=== PATIENT | female | born 1995 | race Caucasian/White ===

== ENCOUNTER → 2016-09-15 | Outpatient (CLI) | payer BC | LOC: LABWHC1 15:41 | PROVIDERS: ATTEND Obstetrics & Gynecology | DX: Z34.00 Encounter for supervision of normal first pregnancy, unspecified trimester (principal); Z3A.00 Weeks of gestation of pregnancy not specified | CPT/HCPCS: 36415; 84702 ==

== ENCOUNTER → 2016-09-22 | Outpatient (CLI) | payer BC | END | disposition home or self-care (01) | LOC: LABWHC1 14:30 | PROVIDERS: ATTEND Obstetrics & Gynecology | DX: O03.9 Complete or unspecified spontaneous abortion without complication (principal) | CPT/HCPCS: 36415; 84702 ==

== ENCOUNTER 2016-09-26 22:23 | Emergency (ER) | payer BC, OTHER ==
[2016-09-26 22:28] VITALS: BP 128/55; PULSE 105; RESP 18; TEMP 99
[2016-09-26] MEDS ORDERED: MORPHINE SULFATE 10 MG/ML SYRINGE IM STA (22:42)
[2016-09-26] MEDS ORDERED: ORPHENADRINE 30 MG/ML 2 ML VIAL IM STA (22:43)
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
--- NOTE | 2016-09-27 01:56 | XR ---
EXAM: XR Chest, 2 Views CLINICAL HISTORY: Reason: Pain TECHNIQUE: Frontal and lateral views of the chest. COMPARISON: No relevant prior studies available. FINDINGS: Lungs: Unremarkable. No consolidation. Pleural space: Unremarkable. No pneumothorax. Heart: Unremarkable. No cardiomegaly. Mediastinum: Unremarkable. Bones/joints: Unremarkable. IMPRESSION: Normal chest x-rays.
--- NOTE | 2016-09-27 01:58 | XR ---
EXAM: XR Cervical Spine, 2 or 3 Views CLINICAL HISTORY: Reason: Pain TECHNIQUE: Frontal and lateral views of the cervical spine. COMPARISON: No relevant prior studies available. FINDINGS: Vertebrae: Unremarkable. No definite fracture. Normal alignment. Disc spaces: No acute findings. No significant narrowing. Soft tissues: Unremarkable. IMPRESSION: Normal cervical spine x-rays.
--- NOTE | 2016-09-27 01:59 | XR ---
EXAM: XR Left Clavicle Complete, 2 or More Views CLINICAL HISTORY: Pain TECHNIQUE: Frontal and lordotic views of the left clavicle. COMPARISON: No relevant prior studies available. FINDINGS: Bones/joints: Unremarkable. No acute fracture. No dislocation. Soft tissues: Unremarkable. IMPRESSION: Normal left clavicle x-rays.
== END 2016-09-26 23:38 | disposition home or self-care (01) ==
LOC: EC 22:23
DX: S16.1XXA Strain of muscle, fascia and tendon at neck level, initial encounter (principal); S20.20XA Contusion of thorax, unspecified, initial encounter; S40.012A Contusion of left shoulder, initial encounter; F17.200 Nicotine dependence, unspecified, uncomplicated; Z88.0 Allergy status to penicillin; Z88.8 Allergy status to other drugs, medicaments and biological substances; Z79.899 Other long term (current) drug therapy; V47.5XXA Car driver injured in collision with fixed or stationary object in traffic accident, initial encounter; Y92.410 Unspecified street and highway as the place of occurrence of the external cause
CPT/HCPCS: 99284; 71020; 72040; 73000; J2360; J2270

== ENCOUNTER 2018-02-09 06:00 | Inpatient (IN) | payer BC ==
[2018-02-09] MEDS ORDERED: BUTORPHANOL 1 MG/ML 1 ML VIAL IV PRN (16:44)
[2018-02-09] MEDS ORDERED: DINOPROSTONE 10 MG INSERT.ER VAGINAL ONE (16:44)
[2018-02-09 16:58] VITALS: BP 135/63; PULSE 100; RESP 16; TEMP 97.2; BMI 33.3
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
[2018-02-09] MEDS ORDERED: ACETAMINOPHEN TAB 325 MG TAB PO PRN (20:35)
[2018-02-10] MEDS ORDERED: METHYLERGONOVINE 0.2 MG/ML 1 ML AMP IM PRN (04:53)
[2018-02-10] MEDS ORDERED: OXYTOCIN 10 UNIT/ML 1 ML VIAL IM PRN (04:53)
[2018-02-10] MEDS ORDERED: CARBOPROST TROMETHAMINE 250 MCG/ML 1 ML AMP IM PRN (04:53)
[2018-02-10] MEDS ORDERED: LACTATED RINGERS 1,000 ML IV SCH (04:53)
[2018-02-10] MEDS ORDERED: TERBUTALINE 1 MG/ML VIAL SQ PRN (04:53)
[2018-02-10] MEDS ORDERED: OXYTOCIN 20 UNITS/1000 ML NS 1,000 ML IV SCH (04:53)
[2018-02-10] MEDS ORDERED: LIDOCAINE 0.5% (PF) 5 MG/ML (50 ML SDV) SQ PRN (04:53)
--- NOTE | 2018-02-10 06:09 | P.PN ---
Progress Note - Text Progress Note Date: 02/10/18 Patient's heart tones remained reactive overnight. Patient was having contractions but none that she really felt. Cervix this morning is approximately fingertip but still thick and firm. She and I previously discussed if she does not have results with her Cervidil that she could go home and try this is different day. Patient is discussed with her family and she understands proceeding with induction at this time certainly increases her risk of section and there is no evidence of compromise therefore she is going to go home follow up in my office on Wednesday for nonstress tests. We 'll also check fluid index the end of next week and schedule induction for the following week if no labor. I did discuss signs and symptoms reasons to come back into the hospital. Plan is to discharge home follow up on Wednesday in the office. She will also come in this Wednesday for nonstress test.
--- NOTE | 2018-02-10 06:16 | P.DS ---
Providers Date of admission: 02/09/18 16:32 Expected date of discharge: 02/10/18 Attending physician: Moi Tapia Primary care physician: Shantanu Melgoza - Discharge Diagnosis(es) (1) with 39 completed weeks gestation Current Visit: Yes Status: Acute (2) Elective induction of labor planned Current Visit: Yes Status: Acute Hospital Course: Patient presented to labor and delivery for requested two-stage induction of labor secondary to maternal discomfort at term. Patient received a Cervidil and overnight repeat cervical exam shows cervix to be fingertip and thick. Patient and the family discussed options as far as proceeding with induction versus going home and trying another day. Patient understands that proceeding with induction at this time is an option however she is still increase section due to cervix being quite unfavorable. And the fact that I do not have a medical indication to proceed with induction other than maternal discomfort. Patient's side to come back another day. But doing nonstress tests this Wednesday and then repeat on Wednesday in the office. Patient Condition at Discharge: Good Plan - Discharge Summary Discharge Rx Participant: No New Discharge Prescriptions: No Action Omeprazole [PriLOSEC] 20 mg PO AC-BID Pnv,Calcium 72/Iron/Folic Acid [ Plus Tablet] 1 each PO DAILY Discharge Medication List Omeprazole [PriLOSEC] 20 mg PO AC-BID 09/26/16 [History] Pnv,Calcium 72/Iron/Folic Acid [ Plus Tablet] 1 each PO DAILY 02/09/18 [ History] Follow up Appointment(s)/Referral(s): Moi Tapia MD [STAFF PHYSICIAN] - 02/16/18 (Please come in this Wednesday to labor and delivery for nonstress test.) Activity/Diet/Wound Care/Special Instructions: I office will call you for an office visit on Wednesday and nonstress tests. Follow-up please this Wednesday for an nonstress test in the labor and delivery. Discharge Disposition: HOME SELF-CARE
== END 2018-02-10 06:15 | disposition home or self-care (01) | DRG 833 ==
LOC: 4FBP 16:32
PROVIDERS: ADMIT Obstetrics & Gynecology; ATTEND Obstetrics & Gynecology
PROC: 3E0P7VZ Introduction of Hormone into Female Reproductive, Via Natural or Artificial Opening (ICD-10-PCS; principal; 2018-02-09)
DX: O61.0 Failed medical induction of labor (principal); O99.343 Other mental disorders complicating pregnancy, third trimester; O99.333 Smoking (tobacco) complicating pregnancy, third trimester; G43.909 Migraine, unspecified, not intractable, without status migrainosus; F17.200 Nicotine dependence, unspecified, uncomplicated; O99.353 Diseases of the nervous system complicating pregnancy, third trimester; F41.9 Anxiety disorder, unspecified; Z3A.39 39 weeks gestation of pregnancy; Z79.899 Other long term (current) drug therapy; Z88.0 Allergy status to penicillin; Z88.8 Allergy status to other drugs, medicaments and biological substances

== ENCOUNTER 2018-02-12 10:19 | Outpatient (CLI) | payer BC ==
[2018-02-12 11:05] VITALS: BP 126/78; PULSE 113; RESP 16; TEMP 97
--- NOTE | 2018-03-07 17:41 | P.MSEPDOC ---
Presenting Problems - Arrival Data Date of Arrival on Unit: 02/12/18 Time of Arrival on Unit: 10:32 Mode of Transport: Ambulatory - Complaint OB-Reason for Admission/Chief Complaint: NST Medical History - Information : 2 Para: 0 Term: 0 : 0 Abortions: Spontaneous or Elective: 0 Number of Living Children: 0 - Gestational Age Gestational Age by SUNITA (wks/days): 39 Weeks and 6 Days Review of Systems - Review of Systems Constitutional: No problems Breast: No problems ENT: No problems Cardiovascular: No problems Respiratory: No problems Gastrointestinal: No problems Genitourinary: No problems Musculoskeletal: No problems Neurological: No problems Skin: No problems Vital Signs - Temperature Temperature: 97.0 F Temperature Source: Temporal Artery Scan - Pulse Brachial Pulse Rate: 113 Pulse Assessment Method: Automatic Cuff - Respirations Respiratory Rate: 16 Oxygen Delivery Method: Room Air O2 Sat by Pulse Oximetry: 96 - Blood Pressure Right Arm Sitting Blood Pressure: 126/78 Blood Pressure Mean: 94 Blood Pressure Source: Automatic Cuff Medical Screen Scoring (Pre) - Cervical Exam Dilation: Exam Deferred Effacement: Exam Deferred Membranes: Intact - Uterine Contractions Frequency: N/A Duration: N/A Intensity: N/A - Maternal Vital Signs Maternal Temperature: N/A Maternal Blood Pressure: N/A Signs of Preeclampsia: N/A Maternal Respirations: N/A - Pain Assessment Pain Scale Used: Numeric (1 - 10) Pain Intensity: 0 - Maternal Trauma Maternal Trauma: N/A - Assessment Heart Rate - NICHD Category: Category I (Normal) = 0 Position: N/A Station: N/A - Total Score Total Score (Pre): 0 - Level of Risk Level of Risk: Low (0-5) Medical Screen Scoring (Post) - Assessment Heart Rate: 140 Heart Rate - NICHD Category: Category I (Normal) = 0 NST: Reactive Position: N/A Station: N/A - Total Score Total Score (Post): 0 Physician Notification (Post) - Physician Notified Physician Notified Date: 02/12/18 Physician Notified Time: 11:08 Spoke With: Dr Anna Mary Order Received: Yes (dc pt home) - Notification Comment Comment: reactive nst, amnisure neg. pt has f/u appt with Dr Tapia 02/16/18 Disposition - Disposition OB Disposition: Triage, Discharge to home, Written follow up instructions reviewed Discharge Date: 02/12/18 Discharge Time: 11:15 I agree with the RN Medical Screening Exam: Yes Risk & Benefit of care provided described in d/c instruction: Yes Diagnosis: FALSE LABOR AT OR AFTER 37 COMPLETED WEEKS OF GESTATION
== END 2018-02-12 11:18 | disposition home or self-care (01) ==
LOC: FBPOP 10:19
PROVIDERS: ATTEND Obstetrics & Gynecology
DX: O47.1 False labor at or after 37 completed weeks of gestation (principal); Z3A.39 39 weeks gestation of pregnancy
CPT/HCPCS: 59025; 84112; 99213

== ENCOUNTER 2018-02-16 23:10 | Inpatient (IN) | payer BC ==
[2018-02-17] MEDS ORDERED: OXYTOCIN 10 UNIT/ML 1 ML VIAL IM PRN (00:08)
[2018-02-17] MEDS ORDERED: TERBUTALINE 1 MG/ML VIAL SQ PRN (00:08)
[2018-02-17] MEDS ORDERED: CARBOPROST TROMETHAMINE 250 MCG/ML 1 ML AMP IM PRN (00:08)
[2018-02-17] MEDS ORDERED: LIDOCAINE 1% INJ 10MG/ML (20 ML MDV) SQ PRN (00:08)
[2018-02-17] MEDS ORDERED: METHYLERGONOVINE 0.2 MG/ML 1 ML AMP IM PRN (00:08)
[2018-02-17] MEDS ORDERED: BUTORPHANOL 1 MG/ML 1 ML VIAL IV PRN (00:10)
[2018-02-17 00:36] VITALS: BMI 33.4
[2018-02-17] MEDS: LACTATED RINGERS 1,000 ML IV SCH ×3 (00:38→08:47)
[2018-02-17] MEDS: OXYTOCIN 20 UNITS/1000 ML NS 1,000 ML IV SCH ×2 (00:45→15:19)
[2018-02-17 00:53] LABS: Basophils % (A) 0 %; Eosinophils # (A) 0.1 k/uL (0-0.7); Eosinophils % (A) 1 %; HCT 35.8 % (34.0-46.0); HGB 12.1 gm/dL (11.4-16.0); Lymphocytes # (A) 1.9 k/uL (1.0-4.8); Lymphocytes % (A) 18 %; MCH 30.5 pg (25.0-35.0); MCHC 33.9 g/dL (31.0-37.0); MCV 90.1 fL (80.0-100.0); Mean Platelet Volume 7.5; Monocytes # (A) 0.6 k/uL (0-1.0); Monocytes % (A) 6 %; Neutrophils # (A) 7.6 k/uL (1.3-7.7); Neutrophils % (A) 72 %; Platelet Count 250 k/uL (150-450); RBC 3.98 m/uL (3.80-5.40); WBC 10.7 k/uL (3.8-10.6)
[2018-02-17] MEDS ORDERED: SODIUM CHLORIDE 0.9% 100 ML BAG ONE (06:21)
[2018-02-17] MEDS ORDERED: fentaNYL (PF) 50 MCG/ML 5 ML AMP ONE (06:21)
[2018-02-17] MEDS ORDERED: ROPIVACAINE 5MG/ML 20ML VIAL ONE (06:21)
--- NOTE | 2018-02-17 07:19 | P.HPOB ---
History of Present Illness H&P Date: 02/17/18 Chief Complaint: Intrauterine at 40 weeks: SROM Patient is a 22-year-old at 40 and 4 who arrives following spontaneous rupture membranes last night. At that time she is having very rare intermittent contractions. She did feel a Cervidil last week and is made only minimal change since that time. Currently she is dilated 1-2 cm 70% effaced and -2 station. Pertinent labs could O+ blood type, Rh antibody was negative. Rubella was immune, hepatitis B surface antigen/HIV/RPR/GBS are all negative. All questions are answered for her. She denies any problems with the and has no other medical problems. Assessment intrauterine at term. Plan expect spontaneous vaginal delivery and plans for epidural for analgesia and Pitocin for augmentation of labor. Past Medical History Past Medical History: No Reported History Additional Past Medical History / Comment(s): History of migraine headaches. History of Any Multi-Drug Resistant Organisms: None Reported Past Surgical History: Cholecystectomy Past Anesthesia/Blood Transfusion Reactions: No Reported Reaction Past Psychological History: No Psychological Hx Reported Smoking Status: Current every day smoker Past Alcohol Use History: None Reported Past Drug Use History: None Reported - Past Family History Mother Family Medical History: No Reported History Medications and Allergies Home Medications Medication Instructions Recorded Confirmed Type Pnv,Calcium 72/Iron/Folic Acid 1 each PO DAILY 02/09/18 02/16/18 History [ Plus Tablet] Famotidine [Pepcid] 20 mg PO DAILY PRN 02/12/18 02/16/18 History Allergies Allergy/AdvReac Type Severity Reaction Status Date / Time Penicillins Allergy Rash/Hives Verified 02/16/18 23:28 prochlorperazine AdvReac Unknown Verified 02/16/18 23:28 [From Compazine] Exam Osteopathic Statement: *. No significant issues noted on an osteopathic structural exam other than those noted in the History and Physical/Consult. Vital Signs Temp Pulse Resp BP Pulse Ox 02/17/18 00:29 97.2 F L 111 H 18 138/78 02/16/18 23:45 97.2 F L 111 H 16 138/78 98 Intake and Output 02/16/18 02/17/18 02/17/18 22:59 06:59 14:59 Other: Weight 91.172 kg - OBG Physical Exam Breast: both: normal (no masses) Abdomen: bowel sounds normal, no diffuse tenderness, no bruit present, no guarding noted, no hepatomegaly, no splenomegaly, no mass Vulva: both: normal Vagina: normal moisture, no discharge Cervix: no lesion, no discharge Uterus: normal size, normal contour Adnexa: both: normal Anus/Rectum: normal perianal skin, no rectal mass, no hemorrhoids, heme negative Results Result Diagrams: 02/17/18 00:35 Abnormal Lab Results - Last 24 Hours (Table) 02/17/18 Range/Units 00:35 WBC 10.7 H (3.8-10.6) k/uL
[2018-02-17] MEDS ORDERED: BENZOCAINE/MENTHOL SPRAY 1 GM/SPRAY AEROSOL TOPICAL PRN (15:29)
[2018-02-17] MEDS ORDERED: ZOLPIDEM 5 MG TAB PO PRN (15:29)
[2018-02-17] MEDS ORDERED: SIMETHICONE 80 MG CHEWABLE PO PRN (15:29)
[2018-02-17] MEDS ORDERED: ACETAMINOPHEN TAB 325 MG TAB PO PRN (15:29)
[2018-02-17] MEDS ORDERED: diphenhydrAMINE 25 MG CAP PO PRN (15:29)
[2018-02-17] MEDS ORDERED: diphenhydrAMINE 50 MG CAP PO PRN (15:29)
[2018-02-17] MEDS ORDERED: diphenhydrAMINE 50 MG/ML 1 ML VIAL IVP PRN ×2 (15:29)
[2018-02-17] MEDS ORDERED: WITCH HAZEL 1 EACH MED..PAD TOPICAL PRN (15:29)
[2018-02-17] MEDS ORDERED: HYDROCORTISONE 2.5% RECTAL CREAM 30 GM TUBE RECTAL PRN (15:29)
[2018-02-17] MEDS ORDERED: LANOLIN CREAM 5 GM TUBE TOPICAL PRN (15:29)
[2018-02-17] MEDS ORDERED: OXYTOCIN 20 UNITS/1000 ML NS 1,000 ML IV SCH (15:30)
[2018-02-17] MEDS: IBUPROFEN 600 MG TAB PO PRN ×2 (15:38→21:52)
[2018-02-17 16:16] VITALS: RESP 16
[2018-02-17] MEDS: SENNOSIDES-DOCUSATE SODIUM 1 EACH TAB PO SCH (19:46)
[2018-02-18] MEDS: IBUPROFEN 600 MG TAB PO PRN ×3 (06:29→19:41)
[2018-02-18 07:22] LABS: Basophils % (A) 0 %; Eosinophils # (A) 0.2 k/uL (0-0.7); Eosinophils % (A) 1 %; HCT 28.7 % (34.0-46.0); Lymphocytes # (A) 2.1 k/uL (1.0-4.8); Lymphocytes % (A) 13 %; MCH 29.7 pg (25.0-35.0); MCV 92.7 fL (80.0-100.0); Mean Platelet Volume 6.9; Monocytes # (A) 0.8 k/uL (0-1.0); Monocytes % (A) 5 %; Neutrophils # (A) 12.6 k/uL (1.3-7.7); Neutrophils % (A) 78 %; Platelet Count 285 k/uL (150-450); RBC 3.09 m/uL (3.80-5.40); RDW 14.2 % (11.5-15.5); WBC 16.3 k/uL (3.8-10.6)
[2018-02-18 07:28] LABS: HGB 9.2 gm/dL (11.4-16.0)
--- NOTE | 2018-02-18 07:48 | P.PROBDLV ---
Vaginal Delivery Note - . Vaginal Delivery Note: 22-year-old presented at 40 weeks and 4 days with spontaneous rupture of membranes at 20:10 on 02/16/2018. She presented to labor and delivery with minimal contractions. Her cervix was dilated to 3 cm I took over her care, 60% effaced, and -2 station. She is elfego irregular. heart tones 100 3135 with moderate variability and reactive. Pitocin augmentation already been started. She did have an epidural for pain management. Her cervix was completely dilated at around 1430. She pushed, delivered a viable female over intact perineum under epidural anesthesia at 1444 head delivered OA , nuchal cord 2 easily reduced, anterior shoulder delivered gentle downward guidance followed by posterior shoulder and rest of body. Nose and mouth bulb suctioned, cord clamped and cut, placed on mother's abdomen.Apgars 6, 8, weight 8 lbs. 3 oz. Placenta delivered spontaneously, intact with three-vessel cord at 1450. Vagina, cervix, and perineum were inspected. Second-degree midline laceration with a periurethral tear was repaired with 3-0 Vicryl. She started to have more bleeding as I was massaged her uterus, Pitocin started been added to her IV. Her bladder was drained and then she was given a dose of Methergine IM. This did help with the bleeding and help to firm the uterus. EBL 600 mL. Mother and baby in stable condition.
--- NOTE | 2018-02-18 08:28 | P.PNOBGVD ---
Subjective - Subjective Principal diagnosis: Status post all vaginal delivery day #1 Interval history: Seen and examined. She denies nausea, vomiting, chest pain, shortness of breath or calf pain. She is not dizzy or lightheaded or feeling any palpitations or shortness of breath upon standing and walking. Her hemoglobin did drop from 12 yesterday to 9.1 today. Her bleeding is minimal amount now. Patient reports: Reports appetite normal, Reports voiding normally, Reports pain well controlled, Reports ambulating normally [place]: doing well Objective - Latest Vital Signs Latest vital signs: Vital Signs Temp Pulse Resp BP 02/18/18 08:00 98.2 F 97 16 101/44 02/18/18 04:00 92 16 111/63 02/17/18 23:45 103 H 16 131/71 02/17/18 20:00 98.7 F 105 H 16 124/80 02/17/18 17:01 99.0 F 101 H 16 128/70 02/17/18 16:31 100 16 129/71 02/17/18 16:01 105 H 16 129/71 02/17/18 16:00 99.1 F 105 H 16 129/71 02/17/18 15:35 108 H 16 122/60 02/17/18 15:20 111 H 16 115/71 02/17/18 15:12 114 H 16 108/70 02/17/18 15:05 99.0 F 117 H 16 159/67 Intake and Output 02/17/18 02/18/18 02/18/18 22:59 06:59 14:59 Intake Total 342.5 Output Total 600 Balance -257.5 Intake: Intake, IV Titration 342.5 Amount Oxytocin 20 Units/1000 ml 342.5 Ns 1,000 ml @ 1 MILLIUNIT/MIN 3 mls/hr IV .Q24H MARY ANNE Rx#:[id number] Output: Estimated Blood Loss 600 Other: # Voids 0 2 - Exam Lungs: bilateral: normal Chest: Normal S1, Normal S2 Extremities: Present: normal Abdomen: Present: normal appearance, soft Uterus: Present: normal, firm - Labs Labs: Abnormal Lab Results - Last 24 Hours (Table) 02/18/18 Range/Units 06:35 WBC 16.3 H (3.8-10.6) k/uL RBC 3.09 L (3.80-5.40) m/uL Hgb 9.2 L D (11.4-16.0) gm/dL Hct 28.7 L (34.0-46.0) % Neutrophils # 12.6 H (1.3-7.7) k/uL Assessment and Plan (1) Normal vaginal delivery Current Visit: Yes Status: Acute Code(s): O80 - ENCOUNTER FOR FULL-TERM UNCOMPLICATED DELIVERY SNOMED Code(s): 54901403 Plan: 1. Continue care
[2018-02-18] MEDS ORDERED: DIPH,PERTUS(ACELL)TETVAC-LF 0.5 ML VIAL IM ONE (18:06)
[2018-02-18] MEDS: SENNOSIDES-DOCUSATE SODIUM 1 EACH TAB PO SCH (18:31)
[2018-02-19 05:34] LABS: Basophils % (A) 0 %; Eosinophils # (A) 0.1 k/uL (0-0.7); Eosinophils % (A) 1 %; HCT 24.5 % (34.0-46.0); HGB 8.1 gm/dL (11.4-16.0); Lymphocytes # (A) 2.2 k/uL (1.0-4.8); Lymphocytes % (A) 22 %; MCH 30.2 pg (25.0-35.0); MCHC 32.9 g/dL (31.0-37.0); MCV 91.6 fL (80.0-100.0); Mean Platelet Volume 9.9; Monocytes # (A) 0.6 k/uL (0-1.0); Monocytes % (A) 6 %; Neutrophils # (A) 6.5 k/uL (1.3-7.7); Neutrophils % (A) 68 %; Platelet Count 181 k/uL (150-450); RBC 2.68 m/uL (3.80-5.40); RDW 14.4 % (11.5-15.5); WBC 9.6 k/uL (3.8-10.6)
[2018-02-19] MEDS: IBUPROFEN 600 MG TAB PO PRN (09:10)
[2018-02-19 09:43] VITALS: BP 126/72; PULSE 99; TEMP 97.8
[2018-02-19] MEDS: SENNOSIDES-DOCUSATE SODIUM 1 EACH TAB PO SCH (09:46)
--- NOTE | 2018-02-19 11:49 | P.DS ---
Providers Date of admission: 02/16/18 23:46 Expected date of discharge: 02/19/18 Attending physician: Moi Tapia Primary care physician: Stated None Hospital Course: This is a 22-year-old female 2 para 0 at 40-4/7 weeks who presented in active labor. She delivered vaginally a viable female infant on 02/17/2018 with scores of 6 at 1 minute and 8 at 5 minutes and weight of 8 lbs. 3 oz. Her course was complicated by initial hemorrhage. Please see details in vaginal delivery note. This has slowed and her bleeding is minimal at this time. She denies any dizziness or lightheadedness. Her hemoglobin did drop from 12.1 prior to delivery to 9.2 after delivery and 8.1 on day #1. Vital signs are stable. Abdomen is soft with fundus firm and nontender. Extremities show negative Homans. Baby is in the nursery for bilirubin issues. She is breast-feeding. Impression is status post vaginal delivery day #2. Plan is to discharge home later today. She is advised to continue taking her vitamins and iron supplements. She will be given a prescription for a breast pump. She is advised to follow up with Dr. Tapia in 6 weeks for check. She is advised to call the office if she has any further questions or concerns prior to her appointment time. Procedures: Spontaneous vaginal delivery of a viable female infant on 02/17/2018 Patient Condition at Discharge: Stable Plan - Discharge Summary New Discharge Prescriptions: New Ibuprofen [Motrin] 600 mg PO Q6HR PRN #30 tab PRN Reason: Mild Pain Or Fever >= 100.5 No Action Pnv,Calcium 72/Iron/Folic Acid [ Plus Tablet] 1 each PO DAILY Famotidine [Pepcid] 20 mg PO DAILY PRN PRN Reason: Heartburn Discharge Medication List Pnv,Calcium 72/Iron/Folic Acid [ Plus Tablet] 1 each PO DAILY 02/09/18 [ History] Famotidine [Pepcid] 20 mg PO DAILY PRN 02/12/18 [History] Ibuprofen [Motrin] 600 mg PO Q6HR PRN #30 tab 02/18/18 [Rx] Follow up Appointment(s)/Referral(s): Moi Tapia MD [STAFF PHYSICIAN] - 6 Weeks Discharge Disposition: HOME SELF-CARE
== END 2018-02-19 19:00 | disposition home or self-care (01) | DRG 807 ==
LOC: FBPOP 23:10 → 4FBP 23:46
PROVIDERS: ADMIT Obstetrics & Gynecology; ATTEND Obstetrics & Gynecology
PROC: 0KQM0ZZ Repair Perineum Muscle, Open Approach (ICD-10-PCS; principal; 2018-02-17)
PROC: 10E0XZZ Delivery of Products of Conception, External Approach (ICD-10-PCS; 2018-02-17)
PROC: 00HU33Z Insertion of Infusion Device into Spinal Canal, Percutaneous Approach (ICD-10-PCS; 2018-02-17)
PROC: 3E0R3NZ Introduction of Analgesics, Hypnotics, Sedatives into Spinal Canal, Percutaneous Approach (ICD-10-PCS; 2018-02-17)
DX: O70.1 Second degree perineal laceration during delivery (principal); Z37.0 Single live birth; Z3A.40 40 weeks gestation of pregnancy; O99.334 Smoking (tobacco) complicating childbirth; F17.200 Nicotine dependence, unspecified, uncomplicated; O69.81X0 Labor and delivery complicated by cord around neck, without compression, not applicable or unspecified; O71.82 Other specified trauma to perineum and vulva; Z90.49 Acquired absence of other specified parts of digestive tract; Z88.0 Allergy status to penicillin; Z88.8 Allergy status to other drugs, medicaments and biological substances
CPT/HCPCS: 59025; 84112; 85025; 86850; 86900; 86901; 90715; 99213

== ENCOUNTER → 2019-09-01 | Outpatient (CLI) | payer BC ==
--- NOTE | 2019-09-18 14:13 | EM ---
EVENT MONITOR Patient had several recordings reported, symptoms were not specified. She had occasional episodes of chest pain. Predominant rhythm appears to be sinus with sinus tachycardia, rates of up to 140 beats per minute as well. This was on auto capture. No symptoms were mentioned. She also had an episode of what seems to be atrial tachycardia, paroxysmal as well. There was episodes of sinus rhythm with sinus tachycardia and when patient complained of having some symptoms of dizziness or lightheadedness, she was in sinus tachycardia at 115 beats per minute. FINAL IMPRESSION: Rhythm is sinus with sinus tachycardia with occasional dizziness correlating with sinus tachycardia at a rate of 115 beats per minute. No other significant tachy or bradyarrhythmias were noted. MMODL / IJN: [id number] /
== END | disposition home or self-care (01) ==
LOC: RADECHMAIN 12:27
PROVIDERS: ATTEND Family Medicine
DX: R00.2 Palpitations (principal); R42 Dizziness and giddiness; R00.0 Tachycardia, unspecified
CPT/HCPCS: 93270

== ENCOUNTER 2020-02-07 15:20 | Emergency (ER) | payer BC ==
[2020-02-07 15:43] VITALS: RESP 18; TEMP 98.8
[2020-02-07 16:03] LABS: Basophils % (A) 0 %; Eosinophils # (A) 0.1 k/uL (0-0.7); Eosinophils % (A) 1 %; HCT 38.6 % (34.0-46.0); HGB 13.3 gm/dL (11.4-16.0); Lymphocytes # (A) 1.6 k/uL (1.0-4.8); Lymphocytes % (A) 17 %; MCH 31.1 pg (25.0-35.0); MCHC 34.5 g/dL (31.0-37.0); Monocytes # (A) 0.4 k/uL (0-1.0); Monocytes % (A) 4 %; Neutrophils # (A) 7.7 k/uL (1.3-7.7); Neutrophils % (A) 77 %; Platelet Count 283 k/uL (150-450); RBC 4.28 m/uL (3.80-5.40); RDW 12.6 % (11.5-15.5); WBC 9.9 k/uL (3.8-10.6)
[2020-02-07 16:14] LABS: ALT 11 U/L (4-34); AST 20 U/L (14-36); African American GFR (CKD) >90 (>60 ml/min/1.73 sqM); Albumin 4.1 g/dL (3.5-5.0); Alkaline Phosphatase 77 U/L (38-126); Anion Gap 7 mmol/L; Blood Urea Nitrogen 8 mg/dL (7-17); Calcium 9.3 mg/dL (8.4-10.2); Carbon Dioxide 22 mmol/L (22-30); Chloride 107 mmol/L (98-107); Glucose 96 mg/dL (74-99); Non-African American GFR(CKD) >90 (>60 ml/min/1.73 sqM); Potassium 3.9 mmol/L (3.5-5.1); Sodium 136 mmol/L (137-145); Total Bilirubin 0.3 mg/dL (0.2-1.3); Total Protein 7.1 g/dL (6.3-8.2)
[2020-02-07 16:16] LABS: INR 0.9 (<1.2); Partial Thromboplastin Time 24.9 sec (22.0-30.0); Prothrombin Time 9.4 sec (9.0-12.0)
[2020-02-07 17:05] LABS: HCG,Quantitative Serum 57029.7 mIU/mL
[2020-02-07 17:29] LABS: Appearance,Urine Clear (Clear); Bilirubin,Urine Negative (Negative); Blood,Urine Moderate (Negative); Color,Urine Yellow; Glucose,Urine (UA) Negative (Negative); Ketones,Urine Negative (Negative); Leukocyte Esterase,Urine Negative (Negative); Mucus,Urine Moderate /hpf; Nitrite,Urine Negative (Negative); PH, Urine 6.5 (5.0-8.0); Protein,Urine Negative (Negative); RBC,Urine <1 /hpf (0-5); Squamous Epithelial Cell,Urine 2 /hpf (0-4); Urobilinogen,Urine <2.0 mg/dL (<2.0); WBC,Urine 1 /hpf (0-5)
[2020-02-07 17:35] VITALS: BP 120/71; PULSE 98
--- NOTE | 2020-02-07 17:43 | ED ---
General Adult HPI - General Chief complaint: Vaginal Bleeding Stated complaint: 13wks preg, bleeding Time Seen by Provider: 02/07/20 16:39 Source: patient, RN notes reviewed Mode of arrival: ambulatory Limitations: no limitations - History of Present Illness Initial comments: 24-year-old female currently 13 weeks presents to the emergency department for vaginal bleeding. Patient reports she had some light spotting starting 3 days ago. She saw her INFORMATION TECHNOLOGY MANAGER yesterday who did get heart tones into the pelvic exam. Patient states the bleeding has continued. She states it was a little heavier this morning but is now very light. She is not having any pain. Patient would like to make sure she is not miscarrying as she did have a miscarriage in the past.Patient has no other complaints at this time including shortness of breath, chest pain, abdominal pain, nausea or vomiting, headache, or visual changes. - Related Data Home Medications Medication Instructions Recorded Confirmed Pnv,Calcium 72/Iron/Folic Acid 1 each PO DAILY 02/09/18 02/16/18 [ Plus Tablet] Famotidine [Pepcid] 20 mg PO DAILY PRN 02/12/18 02/16/18 Previous Rx's Medication Instructions Recorded Ibuprofen [Motrin] 600 mg PO Q6HR PRN #30 tab 02/18/18 Allergies Allergy/AdvReac Type Severity Reaction Status Date / Time Penicillins Allergy Rash/Hives Verified 02/07/20 15:57 prochlorperazine AdvReac Unknown Verified 02/07/20 15:57 [From Compazine] Review of Systems ROS Statement: Those systems with pertinent positive or pertinent negative responses have been documented in the HPI. ROS Other: All systems not noted in ROS Statement are negative. Past Medical History Past Medical History: No Reported History Additional Past Medical History / Comment(s): History of migraine headaches. History of Any Multi-Drug Resistant Organisms: None Reported Past Surgical History: Cholecystectomy Past Anesthesia/Blood Transfusion Reactions: No Reported Reaction Past Psychological History: No Psychological Hx Reported Smoking Status: Never smoker Past Alcohol Use History: None Reported Past Drug Use History: None Reported - Past Family History Mother Family Medical History: No Reported History General Exam Limitations: no limitations General appearance: alert, in no apparent distress Head exam: Present: atraumatic, normocephalic, normal inspection Eye exam: Present: normal appearance, PERRL, EOMI. Absent: scleral icterus, conjunctival injection, periorbital swelling ENT exam: Present: normal exam, mucous membranes moist Neck exam: Present: normal inspection, full ROM. Absent: tenderness, meni ngismus, lymphadenopathy Respiratory exam: Present: normal lung sounds bilaterally. Absent: respiratory distress, wheezes, rales, rhonchi, stridor Cardiovascular Exam: Present: regular rate, normal rhythm, normal heart sounds. Absent: systolic murmur, diastolic murmur, rubs, gallop, clicks GI/Abdominal exam: Present: soft, normal bowel sounds. Absent: distended, tenderness, guarding, rebound, rigid Course Vital Signs 02/07/20 02/07/20 15:39 17:34 Temperature 98.8 F Pulse Rate 111 H 98 Respiratory 18 18 Rate Blood Pressure 113/70 120/71 O2 Sat by Pulse 99 97 Oximetry Medical Decision Making - Medical Decision Making Vitals are stable. CBC CMP unremarkable. HCG Quant 57,000. Urinalysis is negative for obvious infection. Patient is O+ blood type. Ultrasound shows elongated hypoechoic area in the left side outside of the gestational sac that could be chronic hemorrhage. Heart rate of 163. I discussed following up with her doctor and returning for any worsening bleeding or worsening symptoms. Discussed risk of miscarriage with any type of vaginal bleeding while . She returned here to the emergency room department if she has any other concerns. - Lab Data Result diagrams: 02/07/20 15:54 02/07/20 15:54 Lab Results 02/07/20 02/07/20 02/07/20 Range/Units 15:54 15:54 15:54 WBC 9.9 (3.8-10.6) k/uL RBC 4.28 (3.80-5.40) m/uL Hgb 13.3 (11.4-16.0) gm/dL Hct 38.6 (34.0-46.0) % MCV 90.0 (80.0-100.0) fL MCH 31.1 (25.0-35.0) pg MCHC 34.5 (31.0-37.0) g/dL RDW 12.6 (11.5-15.5) % Plt Count 283 (150-450) k/uL MPV 7.0 Neutrophils % 77 % Lymphocytes % 17 % Monocytes % 4 % Eosinophils % 1 % Basophils % 0 % Neutrophils # 7.7 (1.3-7.7) k/uL Lymphocytes # 1.6 (1.0-4.8) k/uL Monocytes # 0.4 (0-1.0) k/uL Eosinophils # 0.1 (0-0.7) k/uL Basophils # 0.0 (0-0.2) k/uL PT 9.4 (9.0-12.0) sec INR 0.9 (<1.2) APTT 24.9 (22.0-30.0) sec Sodium 136 L (137-145) mmol/L Potassium 3.9 (3.5-5.1) mmol/L Chloride 107 (98-107) mmol/L Carbon Dioxide 22 (22-30) mmol/L Anion Gap 7 mmol/L BUN 8 (7-17) mg/dL Creatinine 0.51 L (0.52-1.04) mg/dL Est GFR (CKD-EPI)AfAm >90 (>60 ml/min/1.73 sqM) Est GFR (CKD-EPI)NonAf >90 (>60 ml/min/1.73 sqM) Glucose 96 (74-99) mg/dL Calcium 9.3 (8.4-10.2) mg/dL Total Bilirubin 0.3 (0.2-1.3) mg/dL AST 20 (14-36) U/L ALT 11 (4-34) U/L Alkaline Phosphatase 77 (38-126) U/L Total Protein 7.1 (6.3-8.2) g/dL Albumin 4.1 (3.5-5.0) g/dL HCG, Quant 19221.7 mIU/mL Urine Color Urine Appearance (Clear) Urine pH (5.0-8.0) Ur Specific Paul (1.001-1.035) Urine Protein (Negative) Urine Glucose (UA) (Negative) Urine Ketones (Negative) Urine Blood (Negative) Urine Nitrite (Negative) Urine Bilirubin (Negative) Urine Urobilinogen (<2.0) mg/dL Ur Leukocyte Esterase (Negative) Urine RBC (0-5) /hpf Urine WBC (0-5) /hpf Ur Squamous Epith Cells (0-4) /hpf Urine Mucus (None) /hpf Blood Type Blood Type Recheck Bld Type Recheck Status 02/07/20 02/07/20 Range/Units 17:00 17:33 WBC (3.8-10.6) k/uL RBC (3.80-5.40) m/uL Hgb (11.4-16.0) gm/dL Hct (34.0-46.0) % MCV (80.0-100.0) fL MCH (25.0-35.0) pg MCHC (31.0-37.0) g/dL RDW (11.5-15.5) % Plt Count (150-450) k/uL MPV Neutrophils % % Lymphocytes % % Monocytes % % Eosinophils % % Basophils % % Neutrophils # (1.3-7.7) k/uL Lymphocytes # (1.0-4.8) k/uL Monocytes # (0-1.0) k/uL Eosinophils # (0-0.7) k/uL Basophils # (0-0.2) k/uL PT (9.0-12.0) sec INR (<1.2) APTT (22.0-30.0) sec Sodium (137-145) mmol/L Potassium (3.5-5.1) mmol/L Chloride (98-107) mmol/L Carbon Dioxide (22-30) mmol/L Anion Gap mmol/L BUN (7-17) mg/dL Creatinine (0.52-1.04) mg/dL Est GFR (CKD-EPI)AfAm (>60 ml/min/1.73 sqM) Est GFR (CKD-EPI)NonAf (>60 ml/min/1.73 sqM) Glucose (74-99) mg/dL Calcium (8.4-10.2) mg/dL Total Bilirubin (0.2-1.3) mg/dL AST (14-36) U/L ALT (4-34) U/L Alkaline Phosphatase (38-126) U/L Total Protein (6.3-8.2) g/dL Albumin (3.5-5.0) g/dL HCG, Quant mIU/mL Urine Color Yellow Urine Appearance Clear (Clear) Urine pH 6.5 (5.0-8.0) Ur Specific Paul 1.020 (1.001-1.035) Urine Protein Negative (Negative) Urine Glucose (UA) Negative (Negative) Urine Ketones Negative (Negative) Urine Blood Moderate H (Negative) Urine Nitrite Negative (Negative) Urine Bilirubin Negative (Negative) Urine Urobilinogen <2.0 (<2.0) mg/dL Ur Leukocyte Esterase Negative (Negative) Urine RBC <1 (0-5) /hpf Urine WBC 1 (0-5) /hpf Ur Squamous Epith Cells 2 (0-4) /hpf Urine Mucus Moderate H (None) /hpf Blood Type O Positive Blood Type Recheck O Pos Bld Type Recheck Status No Disposition Clinical Impression: Threatened miscarriage Disposition: HOME SELF-CARE Condition: Good Instructions (If sedation given, give patient instructions): Threatened Miscarriage (ED) Additional Instructions: Please follow-up with your INFORMATION TECHNOLOGY MANAGER. If you have worsening symptoms or increased bleeding return to the emergency room. Is patient prescribed a controlled substance at d/c from ED?: No Referrals: Shantanu Melgoza DO [Primary Care Provider] - 1-2 days Time of Disposition: 18:20
--- NOTE | 2020-02-07 17:53 | US ---
EXAMINATION TYPE: Transabdominal DATE OF EXAM: 02/07/2020 5:35 PM COMPARISON: US, This is first for this . CLINICAL HISTORY: bleeding. Bleeding. Hx miscarriage. . EXAM PERFORMED: Transabdominal (TA) EXAM MEASUREMENTS: GESTATIONAL AGE / DATING Physician Established: (12 weeks/5 days) EDC: 08/16/2020 Dates by LMP: Unknown Dates by First Scan: This is first scan. Dates by Current Scan for: (13 weeks/1 day) EDC: 08/13/2020 MATERNAL ANATOMY Uterus: Anteverted. 13.4 x 10.4 x 9.1 cm. Right Ovary: Not seen Left Ovary: 3.0 x 2.6 x 1.7 cm. Hypoechoic area seen measuring 1.7 x 1.7 x 1.3 cm. Post CDS / Adnexa: Appear wnl Presence of free fluid: None seen Presence of corpus luteal cyst: Possible within left ovary. Hypoechoic area seen measuring 1.7 x 1.7 x 1.3 cm. Presence of subchorionic bleed: Possible. Slightly hypoechoic/mixed area seen uterus left measurin.9 x 3.4 x 2.7 cm. GESTATION / SURVEY CRL: 6.93 cm. (13 weeks/1 day) Yolk Sac (normal less than 6mm): Not seen Heart Rate: 163 bpm Rhythm: Normal IUP: Viable IUP Nuchal Translucency 10-14wks (normal less than 3mm): 1.8 mm. Date of LMP: Unknown Beta HcG (if available): 57,029.7 IMPRESSION: There is elongated hypoechoic area on the left side outside of the gestational sac that could be chrome plater helper dae hemorrhage.
== END 2020-02-07 18:35 | disposition home or self-care (01) ==
LOC: EC 15:20
DX: O20.0 Threatened abortion (principal); Z88.0 Allergy status to penicillin; Z88.8 Allergy status to other drugs, medicaments and biological substances; Z3A.13 13 weeks gestation of pregnancy; Z90.49 Acquired absence of other specified parts of digestive tract
CPT/HCPCS: 36415; 76801; 76813; 80053; 81001; 84702; 85025; 85610; 85730; 86900; 86901; 99284

== ENCOUNTER 2020-08-13 05:52 | Inpatient (IN) | payer OTHER ==
[2020-08-13] MEDS ORDERED: OXYTOCIN 10 UNIT/ML 1 ML VIAL IM PRN (06:03)
[2020-08-13] MEDS ORDERED: TERBUTALINE 1 MG/ML VIAL SQ PRN (06:03)
[2020-08-13] MEDS ORDERED: LIDOCAINE 0.5% (PF) 5 MG/ML (50 ML SDV) SQ PRN (06:03)
[2020-08-13] MEDS ORDERED: METHYLERGONOVINE 0.2 MG/ML 1 ML AMP IM PRN (06:03)
[2020-08-13] MEDS ORDERED: OXYTOCIN 30 UNITS/500 ML NS 30 UNIT in SALINE 1 500ML.BAG IV SCH ×2 (06:03→19:09)
[2020-08-13] MEDS ORDERED: CARBOPROST TROMETHAMINE 250 MCG/ML 1 ML AMP IM PRN (06:03)
[2020-08-13] MEDS: LACTATED RINGERS 1,000 ML IV SCH ×2 (06:19→12:17)
--- NOTE | 2020-08-13 06:23 | P.HPOB ---
History of Present Illness H&P Date: 08/13/20 Chief Complaint: Requested induction of labor. This patient is a pleasant 24-year-old 3 para 1 female estimated date of confinement 08/16/2020 estimated gestational age 39-4/7 weeks who presents to labor and delivery for requested induction of labor. Patient's care is such that is complicated by a large subchorionic bleed at 13 weeks that measured 5.9 cm. Subsequent follow-up ultrasound also showed a large separation of the chorion and amnion. Patient was referred to maternal- medicine which confirmed this large membranes separation (9cm) and serial ultrasounds showed that it did resolve. Patient's been followed with growth ultrasounds and n onstress tests at this time requests to proceed with delivery. care is also noted for a succenturiate placental lobe. Review of Systems Genitourinary: Reports Menstruation: Reports amenorrhea Past Medical History Past Medical History: No Reported History Additional Past Medical History / Comment(s): History of migraine headaches. Previous term vaginal delivery 8 lbs. 4 oz. baby girl. She had a hemorrhage due to atony. History of Any Multi-Drug Resistant Organisms: None Reported Past Surgical History: Cholecystectomy Past Anesthesia/Blood Transfusion Reactions: No Reported Reaction Past Psychological History: No Psychological Hx Reported Smoking Status: Current every day smoker Past Alcohol Use History: None Reported Additional Past Alcohol Use History / Comment(s): 1/2ppd Past Drug Use History: None Reported - Past Family History Mother Family Medical History: No Reported History Medications and Allergies Home Medications Medication Instructions Recorded Confirmed Type Pnv,Calcium 72/Iron/Folic Acid 1 each PO DAILY 02/09/18 08/13/20 History [ Plus Tablet] Allergies Allergy/AdvReac Type Severity Reaction Status Date / Time Penicillins Allergy Rash/Hives Verified 08/13/20 06:03 prochlorperazine AdvReac Unknown Verified 08/13/20 06:03 [From Compazine] Exam Intake and Output 08/12/20 08/12/20 08/13/20 14:59 22:59 06:59 Other: Weight 92.986 kg - OBG Physical Exam Abdomen: bowel sounds normal, no diffuse tenderness, no bruit present, no guarding noted, no hepatomegaly, no splenomegaly, no mass Vulva: both: normal Vagina: normal moisture, no discharge Cervix: no lesion (Cervix is 2 cm thick and -2 station.), no discharge Uterus: enlarged (Fundal height is 39 cm) Results blood work shows she is O positive, rubella immune, RPR nonreactive, hepatitis B negative, HIV was nonreactive, ultrasounds as above. Most recent ultrasound done 7 days ago showed estimated weight is 8 pounds. Group B strep was negative. Assessment and Plan Assessment: This is a pleasant 24-year-old 3 para 1 female 39-4/7 weeks gestation with complicated by large membranes separation that resolved who now presents for requested induction of labor. Plan is induction of labor and anticipate vaginal delivery. Patient does have a history of hemorrhage secondary to atony so will be hyper vigilant of this as well. (1) Elective induction of labor planned Current Visit: No Status: Acute Code(s): WBZ0630 - SNOMED Code(s): 562200327 (2) with 39 completed weeks gestation Current Visit: No Status: Acute Code(s): Z3A.39 - 39 WEEKS GESTATION OF SNOMED Code(s): 51848782
[2020-08-13 06:41] LABS: Basophils % (A) 0 %; Eosinophils # (A) 0.1 k/uL (0-0.7); Eosinophils % (A) 1 %; HCT 37.3 % (34.0-46.0); HGB 12.8 gm/dL (11.4-16.0); Lymphocytes # (A) 2.4 k/uL (1.0-4.8); Lymphocytes % (A) 22 %; MCHC 34.3 g/dL (31.0-37.0); MCV 90.5 fL (80.0-100.0); Mean Platelet Volume 8.3; Monocytes # (A) 0.7 k/uL (0-1.0); Monocytes % (A) 6 %; Neutrophils # (A) 7.3 k/uL (1.3-7.7); Neutrophils % (A) 68 %; Platelet Count 250 k/uL (150-450); RBC 4.12 m/uL (3.80-5.40); RDW 13.5 % (11.5-15.5); WBC 10.7 k/uL (3.8-10.6)
[2020-08-13] MEDS ORDERED: SODIUM CHLORIDE 0.9% 100 ML BAG ONE (12:37)
[2020-08-13] MEDS ORDERED: fentaNYL (PF) 50 MCG/ML 5 ML AMP ONE (12:37)
[2020-08-13] MEDS ORDERED: ROPIVACAINE 5MG/ML 20ML VIAL ONE (12:37)
[2020-08-13] MEDS ORDERED: ZOLPIDEM 5 MG TAB PO PRN (19:09)
[2020-08-13] MEDS ORDERED: LANOLIN CREAM 5 GM TUBE TOPICAL PRN (19:09)
[2020-08-13] MEDS ORDERED: diphenhydrAMINE 50 MG/ML 1 ML VIAL IVP PRN (19:09)
[2020-08-13] MEDS ORDERED: HYDROCORTISONE 2.5% RECTAL CREAM 30 GM TUBE RECTAL PRN (19:09)
[2020-08-13] MEDS ORDERED: SIMETHICONE 80 MG CHEWABLE PO PRN (19:09)
[2020-08-13] MEDS ORDERED: bisacodyL 10 MG SUPP RECTAL PRN (19:09)
[2020-08-13] MEDS ORDERED: diphenhydrAMINE 25 MG CAP PO PRN (19:09)
[2020-08-13] MEDS ORDERED: ACETAMINOPHEN TAB 325 MG TAB PO PRN (19:09)
[2020-08-13] MEDS ORDERED: BENZOCAINE/MENTHOL SPRAY 1 GM/SPRAY AEROSOL TOPICAL PRN (19:09)
--- NOTE | 2020-08-13 19:12 | P.PROBDLV ---
Vaginal Delivery Note - . Vaginal Delivery Note: Vaginal delivery viable male Apgars 8 and 8 delivery time is 1848 hrs. Please see dictated H&P for intimate details of this patient's admission. Brief summary this is a pleasant 24-year-old 3 para 1 female estimated gestational age 39-4/7 weeks who is admitted to labor and delivery for elective induction of labor. On admission patient is artificial rupture membranes for clear fluid is 2 cm dilated and effaced. Labor is induced with Pitocin per pro tocol. Labor progresses and she does get an epidural placed with good relief. Patient continues to progress normally gets to complete. She pushes the head to the perineum. This time the posterior perineum was supported and we have controlled delivery of the 's head over the intact perineum. Infant's head is straight occiput anterior presentation. Mouth and nares are bulb suctioned. There is no evidence of a nuchal cord. With gentle downward traction we have delivery the anterior and posterior shoulder and rest this infant's body. Is a vigorous viable male infant Apgars are 8 and 8 delivery time is 1848 hrs. Infant has spontaneous respiration and good cry and grossly appears normal. After delivery of the the umbilical cords doubly clamped and cut appears to be trivascular. Due to history of jaundice to cord is not delayed. The placenta then spontaneously delivers intact and it does appear to have a small succinuciate lobe. At this time due to the patient's history of atony and hemorrhage she's immediately given Pitocin and one dose of Methergine. She is a little boggy but this firms up with massage and no further bleeding is noted. Inspection of the perineum shows a first-degree posterior laceration was repaired with 3-0 Vicryl in the usual fashion. Excellent reapproximation is noted. All counts are correct 3. There are no compli cations. and mother stable delivery room.
[2020-08-13] MEDS: SENNOSIDES-DOCUSATE SODIUM 1 EACH TAB PO SCH ×2 (19:20→20:24)
[2020-08-13] MEDS: IBUPROFEN 600 MG TAB PO PRN (19:45)
[2020-08-14] MEDS: IBUPROFEN 600 MG TAB PO PRN ×3 (03:10→16:11)
--- NOTE | 2020-08-14 06:13 | P.PNOBGVD ---
Subjective - Subjective Patient reports: Reports appetite normal, Reports voiding normally, Reports pain well controlled, Reports ambulating normally : doing well Objective - Latest Vital Signs Latest vital signs: Vital Signs Temp Pulse Resp BP Pulse Ox 08/14/20 04:00 96.7 F L 85 16 113/74 97 08/13/20 23:40 97.1 F L 90 16 108/70 99 08/13/20 21:00 97.0 F L 104 H 16 133/73 98 08/13/20 20:30 97.5 F L 102 H 16 133/69 08/13/20 20:00 97.6 F 97 16 123/63 08/13/20 19:45 97.4 F L 106 H 16 124/66 08/13/20 19:30 97.7 F 101 H 16 132/69 08/13/20 19:15 97.9 F 100 16 120/66 08/13/20 19:00 97.9 F 113 H 16 133/86 Intake and Output 08/13/20 08/13/20 08/14/20 14:59 22:59 06:59 Intake Total 179.367 Output Total 250 Balance -70.633 Intake: Intake, IV Titration 179.367 Amount Oxytocin 30 Units/500 ml 12.367 Ns 30 unit In Saline 1 500ml.bag @ Per Protocol IV .Q0M [facility] Rx#:[id number] Oxytocin 30 Units/500 ml 167 Ns 30 unit In Saline 1 500ml.bag @ Per Protocol IV .Q0M [facility] Rx#:[id number] Output: Urine 250 Other: # Voids 0 1 - Exam Lungs: bilateral: normal Chest: Normal S1, Normal S2 Extremities: Present: normal Abdomen: Present: normal appearance, soft Uterus: Present: normal, firm - Labs Labs: Abnormal Lab Results - Last 24 Hours (Table) 08/13/20 Range/Units 06:00 WBC 10.7 H (3.8-10.6) k/uL Assessment and Plan Assessment: day #1. Patient is resting without complaints and wishes to go home. Vital signs are stable she is afebrile. Uterus is firm nontender and she is having normal lochia. My impression this is a normal course. Plan today is to check a CBC, encourage ambulation, and discharge home later today as long as the baby can go home with her. (1) Elective induction of labor planned Current Visit: No Status: Acute Code(s): LWG5979 - SNOMED Code(s): 059664322 (2) with 39 completed weeks gestation Current Visit: No Status: Acute Code(s): Z3A.39 - 39 WEEKS GESTATION OF SNOMED Code(s): 39221555
--- NOTE | 2020-08-14 06:17 | P.DS ---
Providers Date of admission: 08/13/20 05:52 Expected date of discharge: 08/14/20 Attending physician: Moi Tapia Primary care physician: Stated None - Discharge Diagnosis(es) (1) Elective induction of labor planned Current Visit: No Status: Acute (2) with 39 completed weeks gestation Current Visit: No Status: Acute Hospital Course: Please see dictated H&P for intimate details of this patient's admission. Brief summary this is a pleasant 24-year-old 3 para 1 female 39-4/7 weeks gestation admitted to labor and delivery for elective induction of labor. Patient is uncomplicated induction of labor goes on to have a vaginal delivery viable male infant. Please see dictated delivery note. day #1 patient wishes to go home was felt be stable for discharge home follow up with me in 6 weeks. Procedures: Induction of labor and normal vaginal delivery Patient Condition at Discharge: Good Plan - Discharge Summary New Discharge Prescriptions: New Ibuprofen [Motrin] 600 mg PO Q6H PRN #30 tab PRN Reason: Pain No Action Pnv,Calcium 72/Iron/Folic Acid [ Plus Tablet] 1 each PO DAILY Discharge Medication List Pnv,Calcium 72/Iron/Folic Acid [ Plus Tablet] 1 each PO DAILY 02/09/18 [History] Ibuprofen [Motrin] 600 mg PO Q6H PRN #30 tab 08/14/20 [Rx] Follow up Appointment(s)/Referral(s): Moi Tapia MD [STAFF PHYSICIAN] - 09/24/20 11:15 am Patient Instructions/Handouts: Vaginal Delivery (DC) Activity/Diet/Wound Care/Special Instructions: No intercourse or anything per vagina for 6 weeks. Please call if any fever, chills, excessive vaginal bleeding, and/or abdominal pain. Discharge Disposition: HOME SELF-CARE
[2020-08-14 06:19] LABS: Basophils % (A) 0 %; Eosinophils # (A) 0.1 k/uL (0-0.7); Eosinophils % (A) 1 %; HCT 31.2 % (34.0-46.0); HGB 10.2 gm/dL (11.4-16.0); Lymphocytes # (A) 2.2 k/uL (1.0-4.8); Lymphocytes % (A) 20 %; MCH 30.1 pg (25.0-35.0); MCHC 32.6 g/dL (31.0-37.0); MCV 92.3 fL (80.0-100.0); Mean Platelet Volume 7.7; Monocytes # (A) 0.6 k/uL (0-1.0); Monocytes % (A) 6 %; Neutrophils # (A) 7.5 k/uL (1.3-7.7); Neutrophils % (A) 70 %; Platelet Count 217 k/uL (150-450); RBC 3.38 m/uL (3.80-5.40); RDW 14.2 % (11.5-15.5); WBC 10.8 k/uL (3.8-10.6)
[2020-08-14] MEDS: SENNOSIDES-DOCUSATE SODIUM 1 EACH TAB PO SCH (10:13)
[2020-08-14 16:59] VITALS: BP 106/69; PULSE 93; RESP 18; TEMP 98.1
== END 2020-08-14 20:08 | disposition home or self-care (01) | DRG 807 ==
LOC: 4FBP 05:52
PROVIDERS: ADMIT Obstetrics & Gynecology; ATTEND Obstetrics & Gynecology
PROC: 10E0XZZ Delivery of Products of Conception, External Approach (ICD-10-PCS; principal; 2020-08-13)
DX: O43.893 Other placental disorders, third trimester (principal); Z37.0 Single live birth; F17.200 Nicotine dependence, unspecified, uncomplicated; O99.334 Smoking (tobacco) complicating childbirth; Z3A.39 39 weeks gestation of pregnancy
CPT/HCPCS: 85025; 86850; 86900; 86901

== ENCOUNTER → 2023-07-01 | Outpatient (CLI) | payer OTHER ==
--- NOTE | 2023-07-01 16:37 | XR ---
EXAMINATION TYPE: XR abdomen 1V DATE OF EXAM: 07/01/2023 Comparison: None Clinical History: 27-year-old female R10.9 UNSPECIFIED ABDOMINAL PAIN Findings: Lung bases are clear. No dilated small bowel. Mild stool within the right side of the colon. Cholecys tectomy clips. No suspicious calcifications are seen. Impression: Nonobstructive bowel gas pattern. Previous cholecystectomy. Only mild stool burden.
== END | disposition home or self-care (01) ==
LOC: RADXRMAIN 12:48
PROVIDERS: ATTEND Internal Medicine Gastroenterology
DX: R10.9 Unspecified abdominal pain (principal); Z90.49 Acquired absence of other specified parts of digestive tract
CPT/HCPCS: 74018